=== PATIENT | female | born 1960 | race Caucasian/White ===

== ENCOUNTER → 2016-12-13 | Outpatient (CLI) | payer BC | LOC: FIMAGING 15:14 | PROVIDERS: ATTEND Internal Medicine | DX: Z12.31 Encounter for screening mammogram for malignant neoplasm of breast (principal) | CPT/HCPCS: G0202 ==

== ENCOUNTER → 2017-12-20 | Outpatient (CLI) | payer BC, OTHER | LOC: FIMAGING 13:01 | PROVIDERS: ATTEND Internal Medicine Hematology & Oncology | DX: Z12.31 Encounter for screening mammogram for malignant neoplasm of breast (principal); Z86.000 Personal history of in-situ neoplasm of breast ==

== ENCOUNTER → 2018-12-24 | Outpatient (CLI) | payer OTHER | LOC: FIMAGING 13:19 ==